=== PATIENT | female | born 1970 | race Two or more races ===

== ENCOUNTER 2017-05-31 10:08 | Inpatient (IN) | payer MEDICAID ==
[~2017-05-31] VITALS: Ht 160 cm; Wt 79.6 kg
[2017-05-31] MEDS ORDERED: SODIUM CHLORIDE 0.9% 1,000 ML IV ONE (10:14)
[2017-05-31 10:24] LABS: HEMATOCRIT 42.3 % (34.6-47.8); HEMOGLOBIN 14.5 g/dL (11.7-16.4); WHITE BLOOD COUNT 12.6 x10^3/uL (3.4-10)
[2017-05-31] MEDS ORDERED: HEPARIN PROTOCOL IIB/IIIA POST-LYTIC MC PRN (10:30)
[2017-05-31] MEDS ORDERED: BISACODYL 10 MG SUPP PR PRN (10:30)
[2017-05-31] MEDS ORDERED: ZOLPIDEM 5MG TABLET PO PRN (10:30)
[2017-05-31] MEDS ORDERED: SODIUM CHLORIDE FLUSH 10ML SYR IVF ONE (10:30)
[2017-05-31] MEDS ORDERED: ONDANSETRON 2MG/ML, 2ML IVPush PRN (10:30)
[2017-05-31] MEDS: CLOPIDOGREL 75 MG TABLET PO SCH (10:30)
[2017-05-31 10:36] LABS: ASPARTATE AMINO TRANSFERASE 94 U/L (15-37); BLOOD UREA NITROGEN 13 mg/dL (7-18)
[2017-05-31 10:42] LABS: IS PT STATUS REG ER OR PRE ER? YES
[2017-05-31 10:44] LABS: ANTI-Xa-UNFRACTIONATED HEP 0.38 IU/mL (0.30-0.70)
[2017-05-31] MEDS: HEPARIN 25,000 UNITS/500ML PMX 500 ML IV PRN (11:48)
[2017-05-31 14:55] VITALS: BP 110/75
[2017-05-31] MEDS: morphine SULFATE 10 MG/ML, 1ML IVPush PRN (15:14)
[2017-05-31 16:25] LABS: IS PT STATUS REG ER OR PRE ER? NO
[2017-05-31] MEDS: METOPROLOL TARTRATE 25 MG TABLET PO SCH (18:00)
[2017-05-31] MEDS: ATORVASTATIN 80 MG TABLET PO SCH (21:39)
[2017-05-31 21:40] LABS: IS PT STATUS REG ER OR PRE ER? NO
[2017-06-01 03:00] VITALS: BP 95/68
[2017-06-01] MEDS: HEPARIN 25,000 UNITS/500ML PMX 500 ML IV PRN (03:00)
[2017-06-01 03:20] LABS: BLOOD UREA NITROGEN 17 mg/dL (7-18)
[2017-06-01 03:24] LABS: ASPARTATE AMINO TRANSFERASE 147 U/L (15-37); IS PT STATUS REG ER OR PRE ER? NO
[2017-06-01] MEDS: METOPROLOL TARTRATE 25 MG TABLET PO SCH (05:50)
[2017-06-01] MEDS: ASPIRIN 81 MG TABLET EC PO SCH (05:58)
[2017-06-01] MEDS: ACETAMINOPHEN 325 MG TABLET PO PRN ×3 (08:27→20:16)
[2017-06-01] MEDS: morphine SULFATE 10 MG/ML, 1ML IVPush PRN (09:14)
[2017-06-01] MEDS ORDERED: MIDAZOLAM 1 MG/ML, 5ML ONE (12:55)
[2017-06-01] MEDS ORDERED: VERAPAMIL 2.5 MG/ML, 2ML ONE (12:55)
[2017-06-01] MEDS ORDERED: TICAGRELOR 90 MG TABLET ONE (12:55)
[2017-06-01] MEDS ORDERED: FENTANYL PF 100 MCG/2ML ONE (12:55)
[2017-06-01] MEDS ORDERED: LIDOCAINE 2%, 20ML ONE (12:56)
[2017-06-01] MEDS ORDERED: BIVALIRUDIN 250 MG ONE (12:56)
[2017-06-01] MEDS ORDERED: NITROGLYCERIN 5 MG/ML, 10ML ONE (12:56)
[2017-06-01] MEDS: SODIUM CHLORIDE 0.9% 1,000 ML IV SCH ×2 (14:15→20:11)
[2017-06-01] MEDS: CLOPIDOGREL 75 MG TABLET PO SCH (15:18)
[2017-06-01 17:45] VITALS: BP 102/67
[2017-06-01] MEDS: ATORVASTATIN 80 MG TABLET PO SCH (20:11)
[2017-06-01 20:31] VITALS: BP 99/63
[2017-06-02 01:01] VITALS: BP 109/74
[2017-06-02 06:06] LABS: BLOOD UREA NITROGEN 11 mg/dL (7-18)
[2017-06-02] MEDS: ASPIRIN 81 MG TABLET EC PO SCH (07:54)
[2017-06-02] MEDS: CLOPIDOGREL 75 MG TABLET PO SCH (07:54)
[2017-06-02 08:29] VITALS: BP 116/77
[2017-06-02] MEDS ORDERED: ATOR40TA PO (10:04)
[2017-06-02] MEDS ORDERED: ASPI-621 PO (10:04)
[2017-06-02] MEDS ORDERED: CLOP75TA PO (10:04)
== END 2017-06-02 11:40 | disposition home or self-care (01) | DRG 282 ==
LOC: ED 10:14 → ICU 10:20 → ED 10:27 → 5SO 06-01 17:13
PROVIDERS: ADMIT Internal Medicine Cardiovascular Disease; ATTEND Internal Medicine Cardiovascular Disease
PROC: 4A023N7 Measurement of Cardiac Sampling and Pressure, Left Heart, Percutaneous Approach (ICD-10-PCS; principal; 2017-06-01)
PROC: B2111ZZ Fluoroscopy of Multiple Coronary Arteries using Low Osmolar Contrast (ICD-10-PCS; 2017-06-01)
PROC: B2151ZZ Fluoroscopy of Left Heart using Low Osmolar Contrast (ICD-10-PCS; 2017-06-01)
DX: I21.19 ST elevation (STEMI) myocardial infarction involving other coronary artery of inferior wall (principal); I95.9 Hypotension, unspecified; F17.200 Nicotine dependence, unspecified, uncomplicated; I21.29 ST elevation (STEMI) myocardial infarction involving other sites; R00.1 Bradycardia, unspecified; I25.2 Old myocardial infarction; Z82.49 Family history of ischemic heart disease and other diseases of the circulatory system
CPT/HCPCS: 36415; 71010; 80048; 80053; 80061; 83735; 83880; 84484; 85025; 85520; 85610; 85730; 87081; 93005; 93306; 93458; 96365; 96366; 99156; C1769; C1894; J0583; J1644; J2250; J3010; J3490; C1887; J2270; J7030; Q9967

== ENCOUNTER 2018-11-20 10:41 | Inpatient (IN) | payer MEDICAID, OTHER ==
[~2018-11-20] VITALS: Ht 165.1 cm; Wt 92.9 kg
[~2018-11-20 10:41] MED LIST: ASPI81TA45 PO; ATOR40TA PO; CLOP75TA PO
--- NOTE | 2018-11-20 11:05 | NUR ---
[facility] FROM [facility] STEMI TNK 45 MG GIVEN AT [facility] 0712 HEP START IN [facility] PT PAIN RESOLVED IN FLT TO BG AT 0955 IV HEP INFUSING WELL ON ARRIVAL BOTH IV SITES INTACT PT AO4 GCS 15 ASA 325 MS 4 ZOFRAN 4 HEP BOLUS 4000 AND FENT 50 GIVEN ADMEASURER HEP INFUSION RUNNING AT 21 ML/HOUR 1050 U / HR ON ARRIVAL
--- NOTE | 2018-11-20 11:20 | NUR ---
CONFIRMED W ERP TO CONTINUE HEP DRIP AT THE RATE PT ARRIVED ON
[2018-11-20] MEDS ORDERED: HEPARIN 25,000 UNITS/500ML PMX 500 ML IV ONE (11:30)
--- NOTE | 2018-11-20 11:33 | NUR ---
RECEIVED REPORT FROM MARK WOODALL. PT MOVED TO ROOM 17.
--- NOTE | 2018-11-20 11:43 | NUR ---
DISHWASHER BUSSER TO THE BS
[2018-11-20] MEDS ORDERED: MIDAZOLAM 1 MG/ML, 2ML ONE ×3 (11:55→12:54)
[2018-11-20] MEDS ORDERED: FENTANYL PF 100 MCG/2ML ONE (11:55)
[2018-11-20] MEDS ORDERED: VERAPAMIL 2.5 MG/ML, 2ML ONE (11:56)
[2018-11-20] MEDS ORDERED: BIVALIRUDIN 250 MG ONE ×2 (11:56→12:53)
[2018-11-20] MEDS ORDERED: LIDOCAINE-MPF 1%, 5ML ONE (11:56)
[2018-11-20] MEDS ORDERED: HEPARIN 1,000 UNITS/ML, 10ML ONE (11:56)
[2018-11-20] MEDS ORDERED: DIPHENHYDRAMINE 50 MG/ML, 1ML ONE (12:12)
[2018-11-20] MEDS ORDERED: LIDOCAINE 1%, 20ML ONE (12:39)
[2018-11-20] MEDS: SODIUM CHLORIDE 0.9% 1,000 ML IV SCH ×2 (13:18→21:18)
[2018-11-20] MEDS ORDERED: BIVALIRUDIN 250 MG in SODIUM CHLORIDE 0.9% 50 ML IV SCH (13:18)
[2018-11-20] MEDS ORDERED: TICAGRELOR 90 MG TABLET ONE (13:21)
[2018-11-20] MEDS: ACETAMINOPHEN 325 MG TABLET PO PRN ×2 (16:31→22:46)
[2018-11-20] MEDS ORDERED: BISACODYL 10 MG SUPP PR PRN (17:30)
[2018-11-20] MEDS ORDERED: ONDANSETRON 2MG/ML, 2ML IVPush PRN (17:30)
[2018-11-20] MEDS ORDERED: hydrALAzine 20 MG/ML, 1ML IVPush PRN (17:30)
[2018-11-20] MEDS ORDERED: morphine SULFATE 10 MG/ML, 1ML IVPush PRN (17:30)
[2018-11-20] MEDS ORDERED: PROMETHAZINE 25 MG/ML, 1ML IM PRN (17:30)
[2018-11-20] MEDS ORDERED: POLYETHYLENE GLYCOL 17 GM PACKET PO PRN (17:30)
[2018-11-20] MEDS ORDERED: ONDANSETRON ODT 4 MG PO PRN (17:30)
[2018-11-20] MEDS ORDERED: DOCUSATE 100 MG CAPSULE PO PRN (17:30)
[2018-11-20] MEDS: NICOTINE 7 MG/24 HR PATCH.TD24 TD SCH (18:05)
[2018-11-20 19:00] LABS: FREE T4 (FREE THYROXINE) 1.21 ng/dL (0.76-1.46); THYROID STIMULATING HORMONE 0.835 mIU/L (0.358-3.740)
[2018-11-20 19:01] LABS: HEMOGLOBIN A1C 5.1 % (4.2-6.3)
[2018-11-20] MEDS: TICAGRELOR 90 MG TABLET PO SCH (22:47)
[2018-11-21 04:16] LABS: BASOPHILS # (AUTO) 0.06 x10^3/uL (0-0.1); BASOPHILS % (AUTO) 1 % (0-1); EOSINOPHILS # (AUTO) 0.15 x10^3/uL (0-0.4); EOSINOPHILS % (AUTO) 2 % (1-7); LYMPHOCYTES # (AUTO) 1.85 x10^3/uL (1-3.4); LYMPHOCYTES % (AUTO) 26 % (22-44); MD NO; MEAN CORPUSCULAR HEMOGLOBIN 28.8 pg (27.0-34.8); MEAN CORPUSCULAR HGB CONC 32.7 g/dL (32.4-35.8); MEAN PLATELET VOLUME 6.6 fL (7.4-10.4); MONOCYTES # (AUTO) 0.62 x10^3/uL (0.2-0.8); MONOCYTES % (AUTO) 9 % (2-9); NEUTROPHILS # (AUTO) 4.42 x10^3/uL (1.8-6.8); NEUTROPHILS % (AUTO) 62 % (42-75); PLATELET COUNT 368 x10^3/uL (130-400); RED BLOOD COUNT 3.44 x10^6/uL (3.82-5.3); RED CELL DISTRIBUTION WIDTH 16.6 % (9.6-15.2)
[2018-11-21 04:29] LABS: ALANINE AMINOTRANSFERASE 21 U/L (12-78); ALBUMIN 2.8 g/dL (3.4-5.0); ANION GAP 4 mmol/L (5-15); CALCIUM 7.8 mg/dL (8.5-10.1); CHLORIDE 110 mmol/L (98-107)
[2018-11-21 04:32] LABS: ALKALINE PHOSPHATASE 66 U/L (45-117); BILIRUBIN,TOTAL 0.2 mg/dL (0.2-1.0); CHOL/HDL RATIO 2.5; CHOLESTEROL, TOTAL 164 mg/dL (140-239); CREATININE 0.63 mg/dL (0.55-1.02); HDL CHOL % 40 % (28-40); HDL CHOLESTEROL (DIRECT) 65 mg/dL (40-60); LDL CHOLESTEROL,CALCULATED 78 mg/dL (54-169); LDL/HDL RATIO 1.2 (0.5-3.0); TOTAL PROTEIN 5.7 g/dL (6.4-8.2); TRIGLYCERIDES 105 mg/dL (50-200); VLDL CHOLESTEROL 21 mg/dL (0-25)
[2018-11-21 05:00] VITALS: BP 110/72
[2018-11-21] MEDS: HYDROcodone/APAP 5/325 TABLET PO PRN ×2 (06:32→19:57)
[2018-11-21] MEDS: TICAGRELOR 90 MG TABLET PO SCH (08:44)
[2018-11-21] MEDS: ASPIRIN 81 MG TABLET EC PO SCH (08:44)
[2018-11-21] MEDS: NICOTINE 7 MG/24 HR PATCH.TD24 TD SCH (17:26)
[2018-11-21 20:00] VITALS: BP 108/64
[2018-11-21] MEDS ORDERED: ATORVASTATIN 80 MG TABLET PO SCH (21:00)
[2018-11-21] MEDS ORDERED: MORPHINE SULFATE 4 MG/ML, 1ML ONE (21:09)
[2018-11-22 02:35] VITALS: BP 108/70
[2018-11-22 05:14] LABS: BASOPHILS # (AUTO) 0.03 x10^3/uL (0-0.1); BASOPHILS % (AUTO) 0 % (0-1); EOSINOPHILS # (AUTO) 0.33 x10^3/uL (0-0.4); EOSINOPHILS % (AUTO) 5 % (1-7); LYMPHOCYTES # (AUTO) 1.98 x10^3/uL (1-3.4); LYMPHOCYTES % (AUTO) 29 % (22-44); MD NO; MEAN CORPUSCULAR HGB CONC 32.5 g/dL (32.4-35.8); MEAN CORPUSCULAR VOLUME 89.1 fL (80-100); MEAN PLATELET VOLUME 6.6 fL (7.4-10.4); MONOCYTES # (AUTO) 0.59 x10^3/uL (0.2-0.8); MONOCYTES % (AUTO) 9 % (2-9); NEUTROPHILS % (AUTO) 57 % (42-75); PLATELET COUNT 372 x10^3/uL (130-400); RED CELL DISTRIBUTION WIDTH 16.5 % (9.6-15.2)
[2018-11-22 05:28] LABS: ALANINE AMINOTRANSFERASE 18 U/L (12-78); ALBUMIN 2.9 g/dL (3.4-5.0); ANION GAP 6 mmol/L (5-15); CALCIUM 7.9 mg/dL (8.5-10.1); CHLORIDE 111 mmol/L (98-107)
[2018-11-22 05:31] LABS: ALKALINE PHOSPHATASE 66 U/L (45-117); BILIRUBIN,TOTAL 0.3 mg/dL (0.2-1.0); CREATININE 0.56 mg/dL (0.55-1.02); TOTAL PROTEIN 5.8 g/dL (6.4-8.2)
[2018-11-22] MEDS ORDERED: METOPROLOL SUCCINATE 25 MG TAB.ER.24H PO SCH (06:00)
[2018-11-22] MEDS ORDERED: CLOPIDOGREL 75 MG TABLET PO SCH (09:00)
[2018-11-22] MEDS: ASPIRIN 81 MG TABLET EC PO SCH (09:43)
[2018-11-22] MEDS ORDERED: METO25TA91 PO (12:59)
== END 2018-11-22 14:00 | disposition home or self-care (01) | DRG 249 ==
LOC: ED 14:05 → CCU 14:08 → ICU 11-21 19:02 → DCLOUNGE 11-22 13:36
PROVIDERS: ADMIT Internal Medicine; ATTEND Internal Medicine
PROC: 4A023N7 Measurement of Cardiac Sampling and Pressure, Left Heart, Percutaneous Approach (ICD-10-PCS; principal; 2018-11-20)
PROC: 02C03ZZ Extirpation of Matter from Coronary Artery, One Artery, Percutaneous Approach (ICD-10-PCS; 2018-11-20)
PROC: 02703EZ Dilation of Coronary Artery, One Artery with Two Intraluminal Devices, Percutaneous Approach (ICD-10-PCS; 2018-11-20)
PROC: B2111ZZ Fluoroscopy of Multiple Coronary Arteries using Low Osmolar Contrast (ICD-10-PCS; 2018-11-20)
PROC: B2151ZZ Fluoroscopy of Left Heart using Low Osmolar Contrast (ICD-10-PCS; 2018-11-20)
DX: I21.19 ST elevation (STEMI) myocardial infarction involving other coronary artery of inferior wall (principal); E66.9 Obesity, unspecified; E78.5 Hyperlipidemia, unspecified; F17.210 Nicotine dependence, cigarettes, uncomplicated; I25.10 Atherosclerotic heart disease of native coronary artery without angina pectoris; N94.6 Dysmenorrhea, unspecified; D63.8 Anemia in other chronic diseases classified elsewhere; Z79.02 Long term (current) use of antithrombotics/antiplatelets; Z79.82 Long term (current) use of aspirin; Z68.34 Body mass index [BMI] 34.0-34.9, adult; Z79.899 Other long term (current) drug therapy; Z82.49 Family history of ischemic heart disease and other diseases of the circulatory system; Z91.14 Patient's other noncompliance with medication regimen; Z90.49 Acquired absence of other specified parts of digestive tract; Z71.6 Tobacco abuse counseling
CPT/HCPCS: 36415; 92928; 93458; 99291; J3490; 80053; 80061; 83036; 83735; 84439; 84443; 84484; 85025; 85520; 87081; 93005; 93306; 99156; 99157; C1876; C1894; G0378; J0583; J1644; J2250; J3010; C1725; C1757; C1769; C1887; J1200; J2270; Q9967